=== PATIENT | female | born 1985 | race Caucasian/White ===

== ENCOUNTER 2023-01-15 12:35 | Emergency (ER) | payer MEDICAID, SELFPAY ==
[2023-01-15 12:41] VITALS: BP 114/62; PULSE 100; RESP 20; TEMP 37.2; O2SAT 100; BMI 23.5
--- NOTE | 2023-01-15 12:42 | ED_ITS ---
HPI - General Adult General Chief complaint: Upper Respiratory Symptoms <JENNIFER Mckee Last Filed: 01/15/23 12:46> Stated complaint: sore throat <JENNIFER Mckee Last Filed: 01/15/23 12:46> Time Seen by Provider: 01/15/23 14:08 <JENNIFER Mckee Last Filed: 01/15/23 12:46> Source: patient <JENNIFER Scott Last Filed: 01/15/23 14:42> Mode of arrival: ambulatory <JENNIFER Scott Last Filed: 01/15/23 14:42> Limitations: no limitations <JENNIFER Scott Last Filed: 01/15/23 14:42> History of Present Illness HPI narrative: 37-year-old female without significant medical history presents for the evaluation of sore throat, fatigue, malaise, myalgias over the past 6 days worsening. Denies sick contacts. Sore throat worse with swallowing better at rest. Patient tells me she has not had much of an appetite over the past few d ays. Denies any changes in voice, drooling, fevers, chills, chest pain, shortness of breath, nausea, vomiting, abdominal pain. <JENNIFER Scott Last Filed: 01/15/23 14:42> Related Data Home medications: Previous Rx's Medication Instructions Recorded clindamycin HCl 300 mg capsule 300 mg PO TID 10 days #30 caps 01/15/23 prednisone 20 mg tablet 40 mg PO DAILY 5 days #10 tabs 01/15/23 <JENNIFER Mckee Last Filed: 01/15/23 12:46> Allergies/adverse reactions: Allergies Allergy/AdvReac Type Severity Reaction Status Date / Time levofloxacin [From Levaquin] Allergy Anaphylaxis Verified 01/15/23 12:44 Penicillins Allergy Anaphylaxis Verified 01/15/23 12:44 <JENNIFER Mckee Last Filed: 01/15/23 12:46> Review of Systems Review of Systems: Constitutional : No Weight loss, + Fever, + Chills, + Fatigue, + Malaise ENT/Mouth : + sore throat, No Rhinorrhea Eyes: No Eye Pain, No Swelling, No Redness Cardiovascular : No Chest Pain, No SOB, No Dyspnea on Exertion, No Orthopnea, No Edema, No Palpitations Respiratory : No Cough, No Sputum, No Wheezing Gastrointestinal : No Nausea, No Vomiting, No Diarrhea, No Constipation, No abdominal Pain, No Hematochezia, No Melena Genitourinary : No Dysuria, No Urinary Frequency, No Hematuria, Musculoskeletal : No joint pain, No Myalgias, No Joint Swelling Skin : No Skin Lesions, No rash Neuro : No Weakness, No Numbness, No Dizziness, No Headache Psych : No Anxiety/Panic, No Depression All other systems reviewed and are negative <JENNIFER Scott - Last Filed: 01/15/23 14:42> Yes all other systems are reviewed and are negative <JENNIFER Scott - Last Filed: 01/15/23 14:42> [facility] Past Medical History Attestation statement: The following information was validated with the patient. <JENNIFER Scott - Last Filed: 01/15/23 14:42> Source: old records reviewed and nursing notes reviewed <JENNIFER Scott - Last Filed: 01/15/23 14:42> Social History Social History: Social History Advance Directives: No Advance Directives Information Provided: No <JENNIFER Mckee - Last Filed: 01/15/23 12:46> Physical Exam ED Vital Signs: Vital Signs - 24 hr 01/15/23 12:41 Temperature 99 F Pulse Rate 100 Respiratory Rate 20 Blood Pressure 114/62 Pulse Oximetry 100 Oxygen Delivery Method Room Air BMI result Body Mass Index 23.5 <JENNIFER Mckee - Last Filed: 01/15/23 12:46> Vital Signs - 24 hr 01/15/23 12:41 Temperature 99 F Pulse Rate 100 Respiratory Rate 20 Blood Pressure 114/62 Pulse Oximetry 100 Oxygen Delivery Method Room Air BMI result Body Mass Index 23.5 Vital signs stable <JENNIFER Scott - Last Filed: 01/15/23 14:42> Appearance: Alert.? Oriented X3.? No acute distress.? Patient well appearing, speaking in full sentences. Controlling secretions well Head: Normocephalic, atraumatic, no step-offs or deformities Eyes: Pupils equal, round and reactive to light.? ENT: Pharynx w/.bilateral tonsillar erythema and mild edema, with scant exudates on the right tonsil.? Uvula is midline. No signs of abscess.? Handling secretions well without any trismus drooling. ? Neck: Normal inspection.? Neck supple.? CVS: Normal heart rate and rhythm.? Pulses normal.? Respiratory: No respiratory distress.? Breath sounds normal.? Abdomen: Soft and nontender.? Skin: Skin warm and dry.? Normal skin color.? Normal skin turgor.? Extremities: No lower extremity edema.? No calf ttp. 5/5 strength to bilateral upper and lower extremities Neuro: Oriented X 3.? No motor deficit.? No sensory deficit. CN 2-12 intact <JENNIFER Scott Last Filed: 01/15/23 14:42> Course Course Course Narrative: RME - 37 y/o female presenting to the emergency department with complaints of sore throat x 6 days. Patient denies any fevers or chills. +decreased appetite. No sick contacts. On exam, patient has BL tonsillar erythema and edema, with scant exudates on the right tonsil. Uvula is midline. Handling secretions well without any trismus drooling. VSS, patient is afebrile. Patient is also return to waiting room until a treatment room becomes available. Plan: Strep A swab ordered. <JENNIFER Mckee Last Filed: 01/15/23 12:46> Reevaluation(s) Reevaluation #1: Patient noted to be strep positive, has an anaphylactic reaction to penicillins. Therefore will give clindamycin, I did educate her on the possibility of diarrhea/C diff, patient verbalizes understanding of this, I advised her of this happened to return immediately for prompt evaluation and discontinue medication. Will give 1st dose here. Insert chart discharge <JENNIFER Scott Last Filed: 01/15/23 14:42> Time: 14:14 <JENNIFER Scott Last Filed: 01/15/23 14:42> Reevaluation #2: Tolerated clindamycin well in the department <JENNIFER Scott Filed: 01/15/23 14:42> Time: 14:42 <JENNIFER Scott - Last Filed: 01/15/23 14:42> Medications Administered Discontinued Medications Generic Name Dose Route Start Last Admin Trade Name Freq PRN Reason Stop Dose Admin Clindamycin HCl 300 mg 01/15/23 14:14 01/15/23 14:36 Clindamycin Hcl 300 Mg Capsule PO 01/15/23 14:15 300 mg ONCE ONE Administration <JENNIFER Mckee - Last Filed: 01/15/23 12:46> Medications Administered Discontinued Medications Generic Name Dose Route Start Last Admin Trade Name Freq PRN Reason Stop Dose Admin Clindamycin HCl 300 mg 01/15/23 14:14 01/15/23 14:36 Clindamycin Hcl 300 Mg Capsule PO 01/15/23 14:15 300 mg ONCE ONE Administration <JENNIFER Scott - Last Filed: 01/15/23 14:42> Medical Decision Making Medical Decision Making MDM Narrative: 37-year-old female presents with fatigue, malaise, myalgias, subjective fevers, chills, sore throat for the past 6 days worsening. Physical exam significant for bilateral tonsillar erythema and mild edema, with scant exudates on the right tonsil.? Uvula is midline. No signs of abscess.? Handling secretions well without any trismus drooling. Regular rate and rhythm. Lungs clear. Abdomen soft nontender nondistended. Neuro nonfocal. No palpable adenopathy Likely strep pharyngitis versus viral illness. No signs of epiglottitis or peritonsillar abscess. Plan at this time viral test <JENNIFER Scott - Last Filed: 01/15/23 14:42> Differential Diagnosis Differential Diagnoses: The differential diagnosis associated with the presentation includes <JENNIFER Scott Last Filed: 01/15/23 14:42> Likely strep pharyngitis versus viral illness. No signs of epiglottitis or peritonsillar abscess. <JENNIFER Scott Last Filed: 01/15/23 14:42> Admission/Observation Consideration of admission/observation: Escalation of care including admission/observation considered <JENNIFER Scott Last Filed: 01/15/23 14:42> None indicated <Yasmeen Ledesma PA - Last Filed: 01/15/23 14:42> Lab Data MDM Lab Attestation statement: I reviewed the patient's lab results. <Yasmeen Ledesma PA - Last Filed: 01/15/23 14:42> Labs: Lab Results 01/15/23 01/15/23 Range/Units 13:46 13:48 COVID-19 ([facility]) Negative (Negative) COVID-19 Clin Com See Note S. pyogenes GrpA WALE Positive A (Negative) <Grace Angela PA - Last Filed: 01/15/23 12:46> Lab Results 01/15/23 01/15/23 Range/Units 13:46 13:48 COVID-19 ([facility]) Negative (Negative) COVID-19 Clin Com See Note S. pyogenes GrpA WALE Positive A (Negative) <Yasmeen Ledesma PA - Last Filed: 01/15/23 14:42> Radiology Impression Discussion of test interpretation with radiology: I have reviewed the radiologist's reading. <JENNIFER Scott - Last Filed: 01/15/23 14:42> Tests considered The following testing was considered but not selected: I do not suspect peritonsillar abscess no need for CT soft tissue neck to rule out abscess. <Yasmeen Ledesma PA - Last Filed: 01/15/23 14:42> Core Measures AMI core measures followed: Yes <JENNIFER Scott - Last Filed: 01/15/23 14:42> Measure exclusions: not indicated <JENNIFER Scott - Last Filed: 01/15/23 14:42> Critical Care Time Critical Care Time Critical Care Time: No <JENNIFER Scott - Last Filed: 01/15/23 14:42> Discharge Plan Discharge Clinical Impression: Pharyngitis <JENNIFER Mckee - Last Filed: 01/15/23 12:46> Patient Disposition: Home, Self-Care <JENNIFER Mckee - Last Filed: 01/15/23 12:46> Instructions: Pharyngitis (ED) <JENNIFER Mckee - Last Filed: 01/15/23 12:46> Additional Instructions: Take your medications as prescribed. If you were prescribed antibiotics today, it is important that you take your medication to their entirety, do not skip any doses, do not finish them early. Follow-up with your primary care provider this week. Return to the emergency department with new or worsening symptoms. Such as fevers, chills, chest pain, shortness of breath, nausea, vomiting, dizziness, headache, vision changes, lethargy In case of emergency call 911 One of the potential side effects of clindamycin is severe diarrhea or an infection called C diff, if you get significant diarrhea discontinue medication and seek medical evaluation immediately. COVID negatived. Strep + <JENNIFER Mckee - Last Filed: 01/15/23 12:46> Prescriptions: New clindamycin HCl 300 mg capsule 300 mg PO TID 10 Days Qty: 30 0RF prednisone 20 mg tablet 40 mg PO DAILY 5 Days Qty: 10 0RF <JENNIFER Mckee - Last Filed: 01/15/23 12:46> Referrals: Physician,Unknown J [Primary Care Provider] - 2 days <JENNIFER Mckee - Last Filed: 01/15/23 12:46> Stand Alone Forms: Work/School Release <JENNIFER Mckee Last Filed: 01/15/23 12:46>
[2023-01-15 14:07] LABS: IDNOW Serial# 08D9AD1C; Strep A Nucleic Acid Positive (Negative)
[2023-01-15 14:16] LABS: COVID-19 Test Negative (Negative); IDNOW Serial# BCCEAD1C
[2023-01-15] MEDS: Clindamycin HCL 300 MG CAPSULE PO (14:36)
[2023-01-15 15:22] VITALS: BP 99/59; PULSE 99; RESP 17; O2SAT 99
== END 2023-01-15 15:25 | disposition home or self-care (01) ==
PROVIDERS: Physician Assistant; Physician Assistant Medical; Emergency Provider Emergency Medicine
DX: J02.0 Streptococcal pharyngitis (principal)
CPT/HCPCS: 87635; 87651; 99284